=== PATIENT | male | born 1990 | race Caucasian/White ===

== ENCOUNTER 2016-05-24 04:03 | Emergency (ER) | payer SELFPAY ==
--- NOTE | 2016-05-24 06:01 | ER Document Report ---
HPI - HPI Patient complains to provider of: injured hands Onset: This morning Onset/Duration: Sudden Quality of pain: Throbbing Pain Level: 4 Context: 26 yo male drank to intoxication due to finding out was cheating on him. Sister here with him. He is not sure what he hit with his hands, does not think it is another person's mouth. 4th left fnger hurts the most and he can't move it. Sister's knew it was dislocatied. [facility] immunizations are current. Abrasions to right hand. - DERM Skin Color: Normal, [place] Past Medical History - General Information source: Patient - Social History Smoking Status: Never Smoker Chew tobacco use (# tins/day): No Frequency of alcohol use: Occasional Drug Abuse: None Family History: Reviewed & Not Pertinent - Medical History Medical History: Negative Renal/ Medical History: Denies: Hx Peritoneal Dialysis Past Surgical History: Reports: Hx Appendectomy, Hx Oral Surgery - Immunizations Hx Diphtheria, Pertussis, Tetanus Vaccination: Yes Vertical Provider Document - CONSTITUTIONAL Agree With Documented VS: Yes Exam Limitations: No Limitations General Appearance: Mild Distress - INFECTION CONTROL TRAVEL OUTSIDE OF THE [place] IN LAST 30 DAYS: No - HEENT HEENT: Normocephalic - NECK Neck: Supple - RESPIRATORY O2 Sat by Pulse Oximetry: 97 - MUSCULOSKELETAL/EXTREMETIES Musculoskeletal/Extremeties: Tender - dorsal dislocation of the middle phalanx 4th left finger at the pip joint, abrasion at pip joints 3,4,5 fingers right hand - NEURO Level of Consciousness: Sedated - sleepy, smells of etoh, oriented when awoken Course - Re-evaluation Re-evalutation: 05/24/16 06:48 digital block with 1% lidocaine 4th left finger, unable to reduce. Dr. Jeronimo will assist. No fx on films per radiologist. 05/24/16 07:02 Second attempt of reduction of the fourth left PIP joint with traction reduced the joint and patient has full range of motion tendon function normal. Patient will be staying with his sister who will take him home. Taken to x-ray for postreduction film. We'll be placing patient on Augmentin because of the intoxication he did tell me that the abrasions on his right PIP joints were not due to a mouth contact but since he now says he is not sure what happens I will place him on the antibiotic to prevent secondary infection of the right hand. 05/24/16 07:15 Post reduction film no fracture and aligned well, pt has full range of motionn N ?V intact - Vital Signs Vital signs: Temp Pulse Resp BP Pulse Ox 97.5 F 106 H 18 140/65 H 97 05/24/16 04:18 05/24/16 04:18 05/24/16 04:18 05/24/16 04:18 05/24/16 04:18 Procedures - Immobilization Left Finger 4th digit Time completed: 07:18 Pre-Proc Neuro Vasc Exam: Normal Immobilizer type: Finger splint (Static) Performed by: PCT Post-Proc Neuro Vasc Exam: Normal Alignment checked and good: Yes - Joint Reduction/Fracture Care Left Finger Time completed: 07:01 Pre-procedure NV exam: Yes Post-procedure NV exam: Yes Post-reduction x-ray: Joint reduced Reduction attempts: 2 Complications: No Notes: 05/24/16 07:02 traction of the 4th left finger 2 minutes reduce, back to xray post reduction. Discharge - Discharge Clinical Impression: reduced fourth left finger PIP joint, alcohol consumption, right 3rd/4th/5th PIP joint abrasions Condition: Good Disposition: HOME, SELF-CARE Instructions: Finger Dislocation ([facility]), Abrasions ([facility]), Anti-Inflammatory Medication ([facility]), Splint Precautions ([facility]) Additional Instructions: keep the splint on See the orthopedic doctor on Thursday for follow-up Take the antibiotics to prevent infection of the right fingers. Turn to the emergency room for any concerns or signs of infection no alcohol Please complete the patient satisfaction survey if you get one, and return it.. If you do not receive a survey, then you can go to the [facility] website, [email or web address] and place your comments about your very good care. Thank you very much. It was a pleasure being your medical provider today. Prescriptions: Ibuprofen [Motrin 800 mg Tablet] 800 mg PO Q8HP PRN #30 tablet PRN Reason: Amoxicillin/Potassium Clav [Augmentin 875-125 Tablet] 1 each PO BID #10 tablet Forms: Return to Work Referrals: JOSE ANDERS MD [ACTIVE STAFF] - 05/26/16
[2016-05-24] MEDS ORDERED: LIDOCAINE 1% INJ-PF (10 MG/ML) 30 ML SDV INJ ONE (06:06)
[2016-05-24] MEDS ORDERED: AMOXICILLIN TR/POT CLAVULANATE 500-125 MG TAB PO ONE (07:01)
[2016-05-24 08:09] VITALS: BP 112/48
== END 2016-05-24 07:41 | disposition home or self-care (01) ==
LOC: ER 04:03
PROC: 0RSXXZZ Reposition Left Finger Phalangeal Joint, External Approach (ICD-10-PCS; principal; 2016-05-24)
DX: S63.285A Dislocation of proximal interphalangeal joint of left ring finger, initial encounter (principal); S69.91XA Unspecified injury of right wrist, hand and finger(s), initial encounter; S60.512A Abrasion of left hand, initial encounter; S60.511A Abrasion of right hand, initial encounter; X58.XXXA Exposure to other specified factors, initial encounter; F10.10 Alcohol abuse, uncomplicated
CPT/HCPCS: 99283; 73140; 73120; 26770; J3490

== ENCOUNTER 2017-04-03 20:10 | Emergency (ER) | payer SELFPAY ==
[2017-04-03 20:32] VITALS: BP 148/60
--- NOTE | 2017-04-03 20:36 | ER Document Report ---
ED Medical Screen (RME) - General Chief Complaint: Testicular Pain Stated Complaint: ABDOMINAL AND TESTICULAR PAIN Time Seen by Provider: 04/03/17 20:32 Notes: 26-year-old male patient with a 4 week history of left lower quadrant abdominal pain that seems to get bad only after ejaculation. There is occasionally some discomfort in the testicle. He states there is no swelling. He says the pain is mainly following ejaculation and sometimes he will feel in his left lower abdomen when he bends over. I have greeted and performed a rapid initial assessment of this patient. A comprehensive ED assessment and evaluation of the patient, analysis of test results and completion of the medical decision making process will be conducted by additional ED providers. TRAVEL OUTSIDE OF THE [place] IN LAST 30 DAYS: No - Related Data Allergies/Adverse Reactions: No Known Allergies Allergy (Verified 05/24/16 04:21) Past Medical History Renal/ Medical History: Denies: Hx Peritoneal Dialysis Past Surgical History: Reports: Hx Appendectomy, Hx Oral Surgery - Immunizations Hx Diphtheria, Pertussis, Tetanus Vaccination: Yes Physical Exam - Vital signs Vitals: Temp Pulse Resp BP Pulse Ox 98.1 F 57 L 18 148/60 H 99 04/03/17 20:31 04/03/17 20:31 04/03/17 20:31 04/03/17 20:31 04/03/17 20:31 Course - Vital Signs Vital signs: Temp Pulse Resp BP Pulse Ox 98.1 F 57 L 18 148/60 H 99 04/03/17 20:31 04/03/17 20:31 04/03/17 20:31 04/03/17 20:31 04/03/17 20:31
[2017-04-03 21:37] LABS: ABSOLUTE MONOCYTES (AUTO) 0.5 10^3/uL (0.1-1.4); ABSOLUTE NEUT (AUTO) 5.2 10^3/uL (1.7-8.2); BASOPHILS % (AUTO) 0.2 % (0-2); EOSINOPHILS % (AUTO) 0.4 % (0-6); HEMATOCRIT 42.6 % (37.9-51.0); HEMOGLOBIN 14.8 g/dL (13.5-17.0); LYMPHOCYTES % (AUTO) 26.1 % (13-45); MEAN CORPUSCULAR HEMOGLOBIN 30.4 pg (27.0-33.4); MEAN CORPUSCULAR HGB CONC 34.7 g/dL (32.0-36.0); MEAN CORPUSCULAR VOLUME 88 fl (80-97); MONOCYTES % (AUTO) 6.4 % (3-13); PLATELET COUNT 183 10^3/uL (150-450); RED BLOOD COUNT 4.87 10^6/uL (4.35-5.55); RED CELL DISTRIBUTION WIDTH 12.3 % (11.5-14.0); SEGMENTED NEUTROPHILS % (AUTO) 66.9 % (42-78); TOTAL CELLS COUNTED % (AUTO) 100 %; WHITE BLOOD COUNT 7.8 10^3/uL (4.0-10.5)
[2017-04-03 21:50] LABS: APPEARANCE,URINE CLEAR; BILIRUBIN,URINE NEGATIVE (NEGATIVE); COLOR,URINE STRAW; GLUCOSE, URINE NEGATIVE (NEGATIVE); KETONES,URINE NEGATIVE (NEGATIVE); LEUKOCYTE ESTERASE,URINE NEGATIVE (NEGATIVE); NITRITE,URINE NEGATIVE (NEGATIVE); PROTEIN,URINE NEGATIVE (NEGATIVE); URINE SPECIFIC GRAVITY 1.004; UROBILINOGEN,URINE NEGATIVE mg/dL (<2.0)
--- NOTE | 2017-04-03 23:11 | ER Document Report ---
ED General - General Chief Complaint: Testicular Pain Stated Complaint: ABDOMINAL AND TESTICULAR PAIN Time Seen by Provider: 04/03/17 20:32 TRAVEL OUTSIDE OF THE [place] IN LAST 30 DAYS: No - HPI Patient complains to provider of: Left testicle pain Notes: Patient coming in for evaluation of left testicle pain. States ongoing for approximately 1 month. Patient denies any trauma patient states started after using a penile ring states that they had a complication with the application of the penile ring since that time has been having left testicle pain. Patient states most of his pain is when he ejaculates. Denies any fever chills nausea vomiting patient does state that the left testicle has been higher than the right testicle since this incident. - Related Data Allergies/Adverse Reactions: No Known Allergies Allergy (Verified 05/24/16 04:21) Past Medical History - Social History Smoking Status: Never Smoker Frequency of alcohol use: Occasional Drug Abuse: None Family History: Reviewed & Not Pertinent Patient has suicidal ideation: No Patient has homicidal ideation: No Renal/ Medical History: Denies: Hx Peritoneal Dialysis Past Surgical History: Reports: Hx Appendectomy, Hx Oral Surgery - Immunizations Hx Diphtheria, Pertussis, Tetanus Vaccination: Yes Review of Systems - Review of Systems Constitutional: No symptoms reported EENT: No symptoms reported Cardiovascular: No symptoms reported Respiratory: No symptoms reported Gastrointestinal: No symptoms reported Genitourinary: No symptoms reported Male Genitourinary: Testicular pain Musculoskeletal: No symptoms reported Skin: No symptoms reported Hematologic/Lymphatic: No symptoms reported Neurological/Psychological: No symptoms reported Physical Exam - Vital signs Vitals: Temp Pulse Resp BP Pulse Ox 98.1 F 57 L 18 148/60 H 99 04/03/17 20:31 04/03/17 20:31 04/03/17 20:31 04/03/17 20:31 04/03/17 20:31 Interpretation: Normal - General General appearance: Appears well, Alert - HEENT Head: Normocephalic, Atraumatic Eyes: Normal Pupils: PERRL - Respiratory Respiratory status: No respiratory distress Chest status: Nontender Breath sounds: Normal Chest palpation: Normal - Cardiovascular Rhythm: Regular Heart sounds: Normal auscultation Murmur: No - Abdominal Inspection: Normal Distension: No distension Bowel sounds: Normal Tenderness: Nontender Organomegaly: No organomegaly - Genitourinary Inspection: Normal Notes: Cremaster reflexes intactBilaterally tenderness to palpation of the back of the left testicle however no specific epididymal pain the left swelling. No swelling no signs of ecchymosis the left testicle is on exam higher than the right however cremaster reflexes intact - Back Back: Normal, Nontender - Extremities General upper extremity: Normal inspection, Nontender, Normal color, Normal ROM , Normal temperature General lower extremity: Normal inspection, Nontender, Normal color, Normal ROM , Normal temperature, Normal weight bearing. No: Syed's sign - Neurological Neuro grossly intact: Yes Cognition: Normal Orientation: AAOx4 [place] Coma Scale Eye Opening: Spontaneous [place] Coma Scale Verbal: Oriented [place] Coma Scale Motor: Obeys Commands Dez Coma Scale Total: 15 Speech: Normal Motor strength normal: LUE, RUE, LLE, RLE Sensory: Normal - Psychological Associated symptoms: Normal affect, Normal mood - Skin Skin Temperature: Warm Skin Moisture: Dry Skin Color: Normal Course - Re-evaluation Re-evalutation: 04/03/17 23:10 Laboratory studies showed no specific etiology will get an ultrasound to evaluate for flow 04/04/17 00:42 Ultrasounds of hydrocele. Patient was educated about treatment of hydrocele patient will be discharged home. A disc of the patient's ultrasound was given to the patient - Vital Signs Vital signs: Temp Pulse Resp BP Pulse Ox 98.1 F 57 L 18 148/60 H 99 04/03/17 20:31 04/03/17 20:31 04/03/17 20:31 04/03/17 20:31 04/03/17 20:31 - Laboratory Result Diagrams: 04/03/17 20:00 Laboratory results interpreted by me: 04/03/17 20:00 Urine Blood SMALL H Discharge - Discharge Clinical Impression: Hydrocele in adult Condition: Good Disposition: HOME, SELF-CARE Instructions: Hydrocele ([facility]) Additional Instructions: Your ultrasound today shows evidence of a left hydrocele. More likely this is causing the elevation of the testicle and can be causing some of the pain. Recommend using Tylenol Motrin for pain control. I would also recommend following up with urologist listed. If the hydrocele does not resolve he may require surgery from a urologist Please wear supportive underwear. Return to ER if symptoms worsen or he develop fever. Prescriptions: Ibuprofen [Motrin 800 mg Tablet] 800 mg PO Q8H PRN #30 tab PRN Reason: Forms: Return to Work Referrals: RENE CUNNINGHAM MD [EMERITUS] - Follow up as needed ARNIE WEST MD [NO LOCAL MD] - Follow up as needed
--- NOTE | 2017-04-03 23:52 | RADIOLOGY REPORT (SQ) ---
EXAM DESCRIPTION: U/S SCROTUM W/DOPPLER COMPLETED DATE/TIME: 04/03/2017 11:36 pm REASON FOR STUDY: left testicle pain 1 month COMPARISON: None. TECHNIQUE: Static and realtime zamora scale imaging of the scrotum and testes. Selected color Doppler and spectral images recorded to document blood flow. LIMITATIONS: None. FINDINGS: RIGHT: TESTICLE: Normal size. Normal echotexture. Normal blood flow. No mass. EPIDIDYMIS: Normal. HYDROCELE OR VARICOCELE: No. HERNIA OR EXTRA-TESTICULAR MASS: No. OTHER: No other significant finding. LEFT: TESTICLE: Normal size. Normal echotexture. Normal blood flow. No mass. EPIDIDYMIS: 8 x 3 mm epididymal head cyst. HYDROCELE OR VARICOCELE: 2.5 x 1.0 by 1.5 cm hydrocele. No varicocele. HERNIA OR EXTRA-TESTICULAR MASS: No. OTHER: No other significant finding. IMPRESSION: Small left hydrocele NO EVIDENCE OF TESTICULAR MASS OR TORSION. TECHNICAL DOCUMENTATION: JOB ID: [id number] [email or web address]- All Rights Reserved
== END 2017-04-04 00:20 | disposition home or self-care (01) ==
LOC: ER 20:10
DX: N50.812 Left testicular pain (principal); N43.3 Hydrocele, unspecified; R10.9 Unspecified abdominal pain
CPT/HCPCS: 36415; 76870; 81001; 85025; 93976; 99284